=== PATIENT | female | born 1955 | race Caucasian/White ===

== ENCOUNTER 2017-02-21 11:24 | Outpatient (CLI) | payer OTHER ==
--- NOTE | 2017-02-22 18:07 | Mammography Report ---
DATE OF SERVICE: 02/21/2017 DIGITAL SCREENING MAMMOGRAM: 02/21/2017 CLINICAL INDICATION: A 61-year-old with history of benign biopsy for screening. COMPARISON: 10/2015, 07/2014, 07/2012, 08/2010, 07/2010. TECHNIQUE: Routine CC and MLO projections were obtained of the breasts. The breasts again demonstrate scattered fibroglandular densities bilaterally. The previously biopsied nodules in the left upper outer quadrant are stable, with biopsy markers in place. No suspicious masses, clustered microcalcifications, or regions of architectural distortion are identified. IMPRESSION: Benign findings. RECOMMENDATIONS: Routine annual screening unless otherwise clinically indicated. BIRADS category 2 benign findings. STANDARD QUALIFYING STATEMENTS 1. This examination was reviewed with the aid of Computed-Aided Detection (CAD). 2. A negative or benign imaging report should not delay biopsy if clinically suspicious findings are present. Consider surgical consultation if warranted. More than 5% of cancers are not identified by imaging. 3. Dense breasts may obscure an underlying neoplasm. TD: 02/22/2017 19:06
== END 2017-02-21 11:25 | disposition home or self-care (01) ==
LOC: DI 11:24
PROVIDERS: ATTEND Family Medicine
DX: Z12.31 Encounter for screening mammogram for malignant neoplasm of breast (principal)
CPT/HCPCS: 77067

== ENCOUNTER 2018-02-18 12:16 | Emergency (ER) | payer OTHER ==
[2018-02-18] MEDS ORDERED: AMOX/CLAV 875 MG/125 MG TABLET PO STA (15:58)
[2018-02-18] MEDS ORDERED: ACETAMINOPHEN 325 MG TABLET PO STA (15:58)
--- NOTE | 2018-02-18 16:01 | ED Physician Documentation ---
History of Present Illness - Stated complaint Stated Complaint: DOG BITES/LOWER BODY - Chief complaint Chief Complaint: Laceration - Additonal information Additional information: hx from pt 62 female tdap age 58 to ER after the neighbor dog bit her L thigh R buttock unprovoked - she was walking by house dogs own recently family at house know dont know immuniz [place] dog has no tags animal control not working today Review of Systems Skin: reports: Bite / sting PD PAST MEDICAL HISTORY - Past Medical History Past Medical History: No Cardiovascular: None Respiratory: None Neuro: Migraines Endocrine/Autoimmune: None GI: None DIE ATTACHING MACHINE TENDER: None : None HEENT: None Psych: None Musculoskeletal: None Derm: None - Past Surgical History Past Surgical History: No /DIE ATTACHING MACHINE TENDER: Hysterectomy - Present Medications Home Medications: Ambulatory Orders Medication Instructions Recorded Confirmed Amox/Clav 875/125 [Augmentin] 1 each PO Q12H #13 tablet 02/18/18 - Allergies Allergies/Adverse Reactions: Allergies Allergy/AdvReac Type Severity Reaction Status Date / Time No Known Drug Allergies Allergy Verified 02/18/18 12:53 - Social History Does the pt smoke?: No Smoking Status: Never smoker Does the pt drink ETOH?: Yes ETOH Use: Wine Does the pt have substance abuse?: Yes Substance Use and Type: Marijuana - Immunizations Immunizations are current?: Yes - POLST Patient has POLST: No PD ED PE NORMAL - Vitals Vital signs reviewed: Yes - Extremities Extremities: Other (two punctures to L thich and linear abrasion to buttock) Results - Vitals Vitals: Vital Signs - 24 hr 02/18/18 12:49 Temperature 36.6 C Heart Rate 94 Respiratory 18 Rate Blood Pressure 174/112 H O2 Saturation 98 Oxygen O2 Source Room air PD MEDICAL DECISION MAKING - ED course ED course: as this is a pet dog it is a) liekly immunized and b) unliekly to have been exposed to rabies kane on [place] rec dog be quarantined and tx pt with augmentin and wound care Departure - Departure Disposition: 01 Home, Self Care Clinical Impression: Dog bite Qualifiers: Encounter type: initial encounter Qualified Code(s): W54.0XXA - Bitten by dog, initial encounter Condition: Good Instructions: ED Bite Dog Follow-Up: Madelyn Mccarty MD [Primary Care Provider] - (wound check 48 hr ) Prescriptions: Amox/Clav 875/125 [Augmentin] 1 each PO Q12H #13 tablet Comments: Rabies is unlikely on [place]. Recommend the dog be quarantined and observed. But do not recommend you get the rabies series at this time Please get your blood pressure rechecked - it was high today
[2018-02-18 16:21] VITALS: BP 166/89
== END 2018-02-18 16:45 | disposition home or self-care (01) ==
LOC: ED 12:16
DX: S71.152A Open bite, left thigh, initial encounter (principal); S30.810A Abrasion of lower back and pelvis, initial encounter; W54.0XXA Bitten by dog, initial encounter; Y93.01 Activity, walking, marching and hiking
CPT/HCPCS: 99283; A9270

== ENCOUNTER 2019-01-21 11:22 | Outpatient (CLI) | payer OTHER ==
--- NOTE | 2019-01-21 14:33 | Mammography Report ---
Reason: ANNUAL SCREENING Procedure Date: 01/21/2019 Accession Number: [id number] / [id number] Procedure: AMINTA - Screening Mammo w/Tru CPT Code: Final Report FULL RESULT: EXAM: Screening Mammo w/Tru DATE: 01/21/2019 12:14 PM CLINICAL HISTORY: Routine screening TECHNIQUE: (B) - Bilateral CC and MLO views were obtained. COMPARISON: 02/21/2017, 10/13/2015, 07/28/2014, 07/29/2012, 08/05/2010, 08/01/2010 PARENCHYMAL PATTERN: (A) - The breasts demonstrate scattered fibroglandular densities bilaterally. FINDINGS: Circumscribed left upper outer quadrant nodule and 2 biopsy markers are stable. There are no new suspicious masses, calcifications, or areas of distortion. IMPRESSION: Benign findings. BI-RADS category 2. RECOMMENDATION: (ANNUAL) - Recommend routine annual screening mammography. BI-RADS CATEGORY: (2) - Benign Findings. STANDARD QUALIFYING STATEMENTS: 1. This examination was not reviewed with the aid of Computer-Aided Detection (CAD). 2. A negative or benign imaging report should not preclude biopsy if clinically suspicious findings are present. 3. Dense breasts may obscure an underlying neoplasm. 4. This examination was reviewed with the aid of 3D breast imaging (tomosynthesis).
== END 2019-01-21 11:23 | disposition home or self-care (01) ==
LOC: DI 11:22
DX: Z12.31 Encounter for screening mammogram for malignant neoplasm of breast (principal)
CPT/HCPCS: 77063; 77067

== ENCOUNTER 2020-05-27 08:01 | Outpatient (CLI) | payer OTHER ==
[2020-05-27 08:25] LABS: BASOPHILS # (AUTO) 0.1 10^3/uL (0.0-0.1); BASOPHILS % (AUTO) 1.3 %; EOSINOPHILS # (AUTO) 0.2 10^3/uL (0.0-0.7); EOSINOPHILS % (AUTO) 3.9 %; HCT - HEMATOCRIT 43.7 % (37.0-47.0); HGB - HEMOGLOBIN 14.5 g/dL (12.0-16.0); MEAN CORPUSCULAR HEMOGLOBIN 30.9 pg (27.0-31.0); MEAN CORPUSCULAR HGB CONC 33.2 g/dL (32.0-36.0); MEAN CORPUSCULAR VOLUME 93.2 fL (81.0-99.0); MEAN PLATELET VOLUME 10.1 fL (7.9-10.8); MONOCYTES # (AUTO) 0.5 10^3/uL (0.0-1.0); MONOCYTES % (AUTO) 9.2 %; NEUTROPHILS # (AUTO) 2.7 10^3/uL (1.5-6.6); NEUTROPHILS % (AUTO) 49.4 %; PLT - PLATELET COUNT 311 10^3/uL (130-450); RED BLOOD COUNT 4.69 10^6/uL (4.20-5.40); RED CELL DISTRIBUTION WIDTH 13.7 % (12.0-15.0); WHITE BLOOD COUNT 5.4 x10^3/uL (4.8-10.8)
[2020-05-27 08:37] LABS: ALBUMIN 4.4 g/dL (3.2-5.5); ALBUMIN/GLOBULIN RATIO 1.4 (1.0-2.2); ALKALINE PHOSPHATASE 59 IU/L (42-121); ALT ALANINE AMINOTRANSFERASE 23 IU/L (10-60); AST ASPARTATE AMINOTRANSFERASE 19 IU/L (10-42); BILIRUBIN,TOTAL 1.1 mg/dL (0.2-1.0); BUN - BLOOD UREA NITROGEN 17 mg/dL (6-20); CALCIUM 9.3 mg/dL (8.5-10.3); CARBON DIOXIDE - CO2 24 mmol/L (21-32); CHLORIDE 104 mmol/L (101-111); CHOL/HDL RATIO 2.7 (<4.4); CHOLESTEROL 202 mg/dL; CREATININE 0.8 mg/dL (0.4-1.0); GFR - MDRD 72 (>89); GLUCOSE 109 mg/dL (70-100); HDL CHOLESTEROL 74 mg/dL; LDL CHOLESTEROL,CALCULATED 114 mg/dL; LDL/HDL RATIO 1.5 (<4.4); SODIUM 139 mmol/L (135-145); TOTAL PROTEIN 7.6 g/dL (6.7-8.2); TRIGLYCERIDES 70 mg/dL; VLDL CHOLESTEROL 14 mg/dL
[2020-05-27 08:47] LABS: THYROID STIMULATING HORMONE 2.97 uIU/mL (0.34-5.60)
== END 2020-05-27 08:02 | disposition home or self-care (01) ==
LOC: LAB 08:01
PROVIDERS: ATTEND Family Medicine
DX: Z00.00 Encounter for general adult medical examination without abnormal findings (principal); R03.0 Elevated blood-pressure reading, without diagnosis of hypertension
CPT/HCPCS: 36415; 80053; 80061; 83721; 84443; 85025

== ENCOUNTER 2020-09-30 10:15 | Outpatient (CLI) | payer MEDICARE ==
--- NOTE | 2020-10-01 13:39 | Mammography Report ---
BILATERAL DIGITAL SCREENING MAMMOGRAM 3D/2D: 09/30/2020 CLINICAL: Routine screening. Comparison is made to exams dated: 01/21/2019 mammogram, 02/21/2017 mammogram, 10/13/2015 mammogram, mammogram, 07/29/2012 ultrasound, and 07/29/2012 mammogram - [facility]. The re are scattered fibroglandular elements in both breasts. There is a biopsy clip in the left breast. No significant masses, calcifications, or other findings are seen in either breast. There has been no significant interval change. IMPRESSION: NEGATIVE There is no mammographic evidence of malignancy. A 1 year screening mammogram is recommended. This exam was interpreted at Station ID: [id number]. NOTE: For mammograms, a report in lay terms will be sent to the patient. Approximately 15% of breast malignancies will not be visualized mammographically. In the management of a palpable breast mass, a negative mammogram must not discourage biopsy of a clinically suspicious lesion. Electronically Signed By: Ty duke/steph:09/30/2020 15:19:02 ACR BI-RADS Category 1: Negative 3341F PARENCHYMAL PATTERN: (A) - The breast(s) demonstrate(s) scattered fibroglandular densities. BI-RADS CATEGORY: (1) - 1 RECOMMENDATION: (ANNUAL) - Recommend routine annual screening mammography. [id number] 1 year screening LATERALITY: (B)
== END 2020-09-30 10:16 | disposition home or self-care (01) ==
LOC: DI 10:15
DX: Z12.31 Encounter for screening mammogram for malignant neoplasm of breast (principal)

== ENCOUNTER 2020-10-18 13:57 | Outpatient (CLI) | payer MEDICARE | END 2020-10-18 13:58 | disposition home or self-care (01) | LOC: COV 13:57 | PROVIDERS: ATTEND Family Medicine | DX: R50.9 Fever, unspecified (principal); R05 Cough; R06.02 Shortness of breath; M79.10 Myalgia, unspecified site; R53.83 Other fatigue; R07.0 Pain in throat; R09.81 Nasal congestion; J34.89 Other specified disorders of nose and nasal sinuses; R11.2 Nausea with vomiting, unspecified; Z20.822 Contact with and (suspected) exposure to COVID-19 ==

== ENCOUNTER 2021-03-29 07:09 | Day surgery (SDC) | payer MEDICARE ==
[2021-03-29] MEDS ORDERED: LACTATED RINGERS 1,000 ML IV ONE (07:49)
--- NOTE | 2021-03-29 08:15 | ANESTHESIA ---
Pre-Anesthesia VS, & Labs - Diagnosis screening exam - Procedure colonoscopy Vital Signs: Temp Pulse Resp BP Pulse Ox 36.4 C L 64 14 164/97 H 96 03/29/21 07:30 03/29/21 07:30 03/29/21 07:30 03/29/21 07:30 03/29/21 07:30 Height: 5 ft 7 in Weight (kg): 92.4 kg Body Mass Index: 31.8 BMI Classification: Obese - NPO >8 hours - Is Patient ?: No Home Medications and Allergies Home Medications: Ambulatory Orders Biotin 5 mg PO DAILY 03/29/21 Metoprolol Succinate [Kapspargo Sprinkle] 25 mg PO DAILY 03/29/21 Multivitamin 1 each PO 03/29/21 Sumatriptan Succinate [Imitrex] 100 mg PO 03/29/21 Biotin 5 mg PO DAILY 03/29/21 Metoprolol Succinate [Kapspargo Sprinkle] 25 mg PO DAILY 03/29/21 Multivitamin 1 each PO 03/29/21 Sumatriptan Succinate [Imitrex] 100 mg PO 03/29/21 Allergies/Adverse Reactions: Allergies Allergy/AdvReac Type Severity Reaction Status Date / Time No Known Drug Allergies Allergy Verified 02/18/18 12:53 Anes History & Medical History - Anesthetic History Anesthesia Complications: reports: No previous complications - Medical History Cardiovascular: reports: Hypertension Pulmonary: reports: None Gastrointestinal: reports: None Urinary: reports: None Neuro: reports: Migraines Musculoskeletal: reports: Osteoarthritis Endocrine/Autoimmune: reports: None Blood Disorders: reports: None Skin: reports: None Smoking Status: Never smoker Psychosocial: reports: Alcohol (1-2 glasses of wine per day) History of Cancer?: No - Surgical History General: reports: Colonoscopy Eyes Ears Nose Throat (EENT): reports: Other Gynecologic: reports: Hysterectomy Orthopedic: reports: Arthroscopic surgery Exam General: Alert, Oriented x3, Cooperative, No acute distress Dental: WNL Mouth Openin Fingerbreadth Neck Mobility: Reduced Mallampati classification: III Thyromental Distance: 4-6 cm Mental/Cognitive Status: Alert/Oriented X3, Normal for patient Plan Anesthesia Type: Total IV Consent for Procedure(s) Verified and Reviewed: Yes Code Status: Attempt Resuscitation ASA classification: 2-Mild systemic disease Is this case an emergency?: No
[2021-03-29] MEDS ORDERED: PROPOFOL 200 MG/20 ML VIAL IVP ONE (09:22)
[2021-03-29] MEDS ORDERED: LACTATED RINGERS 300 ML IV ONE (09:38)
[2021-03-29 10:11] VITALS: BP 162/98
--- NOTE | 2021-03-29 10:36 | ANESTHESIA POST OP EVALUATION ---
Anesthesia Post Eval - Post Anesthesia Eval Vitals: Last Vital Signs Temp 36.5 C 03/29/21 10:11 Pulse 72 03/29/21 10:11 Resp 15 03/29/21 10:11 BP 162/98 H 03/29/21 10:11 Pulse Ox 99 03/29/21 10:11 CV Function Including HR & BP: Stable Pain Control: Satisfactory Nausea & Vomiting: Negative Mental Status: Baseline Respiratory Status: Airway Patent Hydration Status: Satisfactory Anesthesia Complications: None
== END 2021-03-29 07:10 | disposition home or self-care (01) ==
LOC: SDS 07:09
PROVIDERS: ATTEND Surgery
PROC: 0DBH8ZZ Excision of Cecum, Via Natural or Artificial Opening Endoscopic (ICD-10-PCS; principal; 2021-03-29 08:15)
DX: Z12.11 Encounter for screening for malignant neoplasm of colon (principal); D12.0 Benign neoplasm of cecum; K57.30 Diverticulosis of large intestine without perforation or abscess without bleeding; K64.8 Other hemorrhoids; G43.909 Migraine, unspecified, not intractable, without status migrainosus; E66.9 Obesity, unspecified; Z68.31 Body mass index [BMI] 31.0-31.9, adult
CPT/HCPCS: 45380; J7120

== ENCOUNTER 2022-04-04 14:17 | Outpatient (CLI) | payer MEDICARE ==
--- NOTE | 2022-04-05 12:29 | Mammography Report ---
BILATERAL DIGITAL SCREENING MAMMOGRAM 3D/2D: 04/04/2022 CLINICAL: Routine screening. Comparison is made to exams dated: 09/30/2020 mammogram, 01/21/2019 mammogram, 02/21/2017 mammogram, a nd [facility] There are scattered areas of fibroglandular density in both breasts (category b / 25%-50% glandular t issue). There are biopsy clips in the left breast. No significant masses, calcifications, or other findings are seen in either breast. There has been no significant interval change. IMPRESSION: NEGATIVE There is no mammographic evidence of malignancy. A 1 year screening mammogram is recommended. Based on the Tyrer Cuzick model (a risk assessment model) the patients lifetime risk is 5.2% and her 10 year risk is 2.9%. According to the ACR, ACS, and NCCN guidelines, an annual breast MRI exam daniel g with mammogram is recommended if the patients lifetime risk is 20% or greater. This exam was interpreted at Station ID: [id number]. NOTE: For mammograms, a report in lay terms will be sent to the patient. Approximately 15% of breast malignancies will not be visualized mammographically. In the management of a palpable breast mass, a negative mammogram must not discourage biopsy of a clinically suspicious lesion. Electronically Signed By: Peter hardy/steph:04/04/2022 16:46:28 letter sent: No_Letter ACR BI-RADS Category 1: Negative 3341F PARENCHYMAL PATTERN: (A) - The breast(s) demonstrate(s) scattered fibroglandular densities. BI-RADS CATEGORY: (1) - 1 RECOMMENDATION: (ANNUAL) - Recommend routine annual screening mammography. [id number] 1 year screening LATERALITY: (B)
== END 2022-04-04 14:18 | disposition home or self-care (01) ==
LOC: DI 14:17
DX: Z12.31 Encounter for screening mammogram for malignant neoplasm of breast (principal)

== ENCOUNTER 2022-06-07 07:00 | Outpatient (CLI) | payer MEDICARE ==
--- NOTE | 2022-06-07 17:13 | XRAY Report ---
PROCEDURE: Hip w/Pelvis 2-3V LT INDICATIONS: LEFT HIP PAIN. TECHNIQUE: AP pelvis with lateral view(s) of the left hip(s). COMPARISON: None. FINDINGS: Bones: No fractures or dislocations. No suspicious bony lesions. Yomn-ml-xllxuyya symmetric hip a nd sacroiliac joint degeneration bilaterally. Soft tissues: No suspicious soft tissue calcifications or masses. IMPRESSION: Zaoy-ay-udtijnhp degenerative joint disease. Reviewed by: Kalpana Fajardo MD on 06/07/2022 5:11 PM PDT Approved by: Kalpana Fajardo MD on 06/07/2022 5:11 PM PDT Station ID: [id number]
== END 2022-06-07 23:59 | disposition home or self-care (01) ==
LOC: DI.S 07:00
PROVIDERS: ATTEND Internal Medicine
DX: M16.12 Unilateral primary osteoarthritis, left hip (principal)

== ENCOUNTER 2022-09-21 07:42 | Outpatient (CLI) | payer MEDICARE ==
[2022-09-21 08:02] LABS: BASOPHILS # (AUTO) 0.1 10^3/uL (0.0-0.1); EOSINOPHILS # (AUTO) 0.4 10^3/uL (0.0-0.7); EOSINOPHILS % (AUTO) 6.2 %; HGB - HEMOGLOBIN 13.7 g/dL (12.0-16.0); LYMPHOCYTES # (AUTO) 1.8 10^3/uL (1.5-3.5); LYMPHOCYTES % (AUTO) 30.1 %; MEAN CORPUSCULAR HGB CONC 32.6 g/dL (32.0-36.0); MEAN CORPUSCULAR VOLUME 91.9 fL (81.0-99.0); MEAN PLATELET VOLUME 9.5 fL (7.9-10.8); MONOCYTES # (AUTO) 0.6 10^3/uL (0.0-1.0); MONOCYTES % (AUTO) 9.6 %; NEUTROPHILS # (AUTO) 3.2 10^3/uL (1.5-6.6); NEUTROPHILS % (AUTO) 52.8 %; PLT - PLATELET COUNT 287 10^3/uL (130-450); RED BLOOD COUNT 4.57 10^6/uL (4.20-5.40); RED CELL DISTRIBUTION WIDTH 13.6 % (12.0-15.0); WHITE BLOOD COUNT 6.1 x10^3/uL (4.8-10.8)
[2022-09-21 08:28] LABS: ALBUMIN 4.1 g/dL (3.2-5.5); ALBUMIN/GLOBULIN RATIO 1.4 (1.0-2.2); ALKALINE PHOSPHATASE 62 IU/L (42-121); ALT ALANINE AMINOTRANSFERASE 23 IU/L (10-60); AST ASPARTATE AMINOTRANSFERASE 19 IU/L (10-42); BUN - BLOOD UREA NITROGEN 18 mg/dL (6-20); CALCIUM 9.2 mg/dL (8.5-10.3); CARBON DIOXIDE - CO2 28 mmol/L (21-32); CHLORIDE 105 mmol/L (101-111); CHOL/HDL RATIO 3.4 (<4.4); CHOLESTEROL 195 mg/dL; CREATININE 0.7 mg/dL (0.4-1.0); GFR - MDRD 83 (>89); GLUCOSE 114 mg/dL (70-100); HDL CHOLESTEROL 57 mg/dL; LDL CHOLESTEROL,CALCULATED 112 mg/dL; POTASSIUM 3.9 mmol/L (3.5-5.0); SODIUM 139 mmol/L (135-145); TOTAL PROTEIN 7.1 g/dL (6.7-8.2); TRIGLYCERIDES 131 mg/dL; VLDL CHOLESTEROL 26 mg/dL
[2022-09-21 08:36] LABS: THYROID STIMULATING HORMONE 4.08 uIU/mL (0.34-5.60)
== END 2022-09-21 07:43 | disposition home or self-care (01) ==
LOC: LAB 07:42
PROVIDERS: ATTEND Nurse Practitioner Acute Care
DX: Z13.228 Encounter for screening for other metabolic disorders (principal); Z13.220 Encounter for screening for lipoid disorders; Z13.29 Encounter for screening for other suspected endocrine disorder; Z13.0 Encounter for screening for diseases of the blood and blood-forming organs and certain disorders involving the immune mechanism
CPT/HCPCS: 36415; 80053; 80061; 83721; 84443; 85025

== ENCOUNTER 2023-06-09 19:35 | Emergency (ER) | payer MEDICARE ==
[2023-06-09 19:50] VITALS: BP 160/90
--- NOTE | 2023-06-09 20:20 | ED Physician Documentation ---
History of Present Illness - Stated complaint Stated Complaint: SORE THROAT/EAR PX - Chief complaint Chief Complaint: General - History obtained from History obtained from: Patient - Additonal information Additional information: 67-year-old female presents for sore throat, nonproductive cough, right ear pain. Symptoms have been ongoing for 2 weeks. She presents with her who is here with similar symptoms. Patient and her both state that they do not feel that fzkv-pgw-ahyrkcf medications are working and are concerned that there may be another infection going on. They are also requesting different cough medications if possible. Review of Systems Constitutional: denies: Fever, Chills Throat: reports: Sore throat Cardiac: denies: Chest pain / pressure, Palpitations, Calf pain Respiratory: reports: Cough. denies: Dyspnea, Wheezing Skin: denies: Rash, Lesions, Abrasion (s) PD PAST MEDICAL HISTORY - Past Medical History Past Medical History: Yes Cardiovascular: Hypertension Respiratory: None Neuro: Migraines Endocrine/Autoimmune: None GI: None CALL SPECIALIST: None : None HEENT: None Psych: None Musculoskeletal: Osteoarthritis Derm: None - Past Surgical History Past Surgical History: No General: Colonoscopy Ortho: Arthroscopic surgery /CALL SPECIALIST: Hysterectomy HEENT: Other - Present Medications Home Medications: Ambulatory Orders Medication Instructions Recorded Confirmed Biotin 5 mg PO DAILY 03/29/21 03/29/21 Metoprolol Succinate [Kapspargo 25 mg PO DAILY 03/29/21 03/29/21 Sprinkle] Multivitamin 1 each PO 03/29/21 Sumatriptan Succinate [Imitrex] 100 mg PO 03/29/21 Hydrocodone Bit/Homatrop Me-Br 5 ml PO Q6H PRN #150 ml 06/09/23 [Hycodan 5 mg-1.5 mg/5 ml Soln] - Allergies Allergies/Adverse Reactions: Allergies Allergy/AdvReac Type Severity Reaction Status Date / Time No Known Drug Allergies Allergy Verified 06/09/23 19:41 - Social History Does the pt smoke?: No Smoking Status: Never smoker Does the pt drink ETOH?: Yes Does the pt have substance abuse?: Yes - Immunizations Immunizations are current?: Yes - POLST Patient has POLST: No PD ED PE NORMAL - Vitals Vital signs reviewed: Yes - General General: Alert and oriented X 3, No acute distress, Well developed/nourished - HEENT HEENT: Atraumatic, PERRL, EOMI, Ears normal, Moist mucous membranes, Pharynx benign, Dentition benign - Neck Neck: Supple, no meningeal sign - Cardiac Cardiac: RRR, Strong equal pulses - Respiratory Respiratory: No respiratory distress, Clear bilaterally - Derm Derm: Normal color, Warm and dry, No rash - Extremities Extremities: No deformity, No tenderness to palpate, Normal ROM s pain, No edema - Neuro Neuro: Alert and oriented X 3, senior dynamics crm developer 2-12 intact, No motor deficit, Normal speech Results - Vitals Vitals: Vital Signs - 24 hr 06/09/23 06/09/23 19:41 20:52 Temperature 37.3 C Heart Rate 79 78 Respiratory 16 16 Rate Blood Pressure 160/90 H O2 Saturation 96 97 Oxygen O2 Source Room air - Labs Labs: Laboratory Tests 06/09/23 20:20 Nasal Influenza B PCR NOT DETECTED Nasal Influenza A PCR NOT DETECTED Nasal RSV (PCR) NOT DETECTED Nasal SARS-CoV-2 (PCR) NOT DETECTED PD Medical Decision Making - ED course Complexity details: reviewed old records, reviewed results, re-evaluated patient, considered differential, d/w patient ED course: Well-appearing patient with persistent upper respiratory symptoms consistent with acute bronchitis. Reports sore throat and ear pain, however exam of pharynx and tympanic membranes is normal. Lungs are clear to auscultation. Patient states her primary concern is the cough that is not controlled with uags-gki-zqtouwz medications. Given dose of Decadron, cough medication sent to pharmacy of choice. Departure - Departure Disposition: 01 Home, Self Care Clinical Impression: Bronchitis Condition: Stable Instructions: ED Upper Resp Infec No Abx Tx Prescriptions: Hydrocodone Bit/Homatrop Me-Br [Hycodan 5 mg-1.5 mg/5 ml Soln] 5 ml PO Q6H PRN #150 ml PRN Reason: Cough Forms: PCP List Discharge Date/Time: 06/09/23 20:53
[2023-06-09] MEDS: CHERRY SYRUP 10 ML UDC PO ONE (20:24)
[2023-06-09] MEDS: DEXAMETHASONE 10 MG/ML VIAL PO STA (20:24)
[2023-06-09 20:56] VITALS: O2SAT 97
[2023-06-09 21:15] LABS: INFLUENZA A- RESP PCR PANEL NOT DETECTED; INFLUENZA B - RESP PCR PANEL NOT DETECTED; RSV- RESP PCR PANEL NOT DETECTED; SARS-CoV-2 -RESP PCR PANEL NOT DETECTED
== END 2023-06-09 20:53 | disposition home or self-care (01) ==
LOC: ED 19:35
DX: J40 Bronchitis, not specified as acute or chronic (principal)
CPT/HCPCS: 87637; 99283; A9270

== ENCOUNTER 2023-10-17 08:05 | Outpatient (CLI) | payer MEDICARE ==
[2023-10-17 08:23] LABS: BILIRUBIN,URINE NEGATIVE (NEGATIVE); GLUCOSE, URINE (UA) NEGATIVE (NEGATIVE); KETONES,URINE (UA) NEGATIVE (NEGATIVE); LEUKOCYTE ESTERASE, URINE NEGATIVE (NEGATIVE); NITRITE,URINE NEGATIVE (NEGATIVE); OCCULT BLOOD,URINE NEGATIVE (NEGATIVE); PROTEIN,URINE NEGATIVE (NEGATIVE); UROBILINOGEN,URINE 0.2 (NORMAL) E.U./dL (NORMAL)
[2023-10-17 08:47] LABS: BACTERIA,URINE Rare /HPF (None Seen); CLARITY,URINE CLEAR (CLEAR); RBC,URINE 0-5 /HPF (0-5); SQUAMOUS EPITHELIAL CELL,UR RARE Squamous (<= Few); WBC,URINE 0-3 /HPF (0-5)
[2023-10-18 05:15] LABS: HIV SCREEN 4TH GENERATION Non Reactive (Non Reactive)
== END 2023-10-17 08:06 | disposition home or self-care (01) ==
LOC: LAB 08:05
PROVIDERS: ATTEND Nurse Practitioner Acute Care
DX: R61 Generalized hyperhidrosis (principal)
CPT/HCPCS: 36415; 81001; 85651; 86038; 86140; 87040; G0475; 87086; 87389

== ENCOUNTER 2023-10-18 08:49 | Outpatient (CLI) | payer MEDICARE ==
--- NOTE | 2023-10-19 10:45 | Mammography Report ---
BILATERAL DIGITAL SCREENING MAMMOGRAM 3D/2D: 10/18/2023 CLINICAL: Routine screening. Comparison is made to exams dated: 04/04/2022 mammogram, 09/30/2020 mammogram, 01/21/2019 mammogram, mammogram, 10/13/2015 mammogram, and 07/28/2014 mammogram - [facility]. There are scattered areas of fibroglandular density (category b / 25%-50% glandular tissue). There are biopsy clips in the left breast. No significant masses, calcifications, or other findings are seen in either breast. There has been no significant interval change. IMPRESSION: NEGATIVE There is no mammographic evidence of malignancy. A 1 year screening mammogram is recommended. Based on the Tyrer Cuzick model (a risk assessment model) the patient's lifetime risk is 4.7% and her 10 year risk is 2.9%. According to the ACR, ACS, and NCCN guidelines, an annual breast MRI exam daniel g with mammogram is recommended if the patient's lifetime risk is 20% or greater. This exam was interpreted at Station ID: [id number]. NOTE: For mammograms, a report in lay terms will be sent to the patient. Approximately 15% of breast malignancies will not be visualized mammographically. In the management of a palpable breast mass, a negative mammogram must not discourage biopsy of a clinically suspicious lesion. Electronically Signed By: Ty Gross M.D. [email or web address]:10/18/2023 17:34:31 ACR BI-RADS Category 1: Negative 3341F PARENCHYMAL PATTERN: (A) - The breast(s) demonstrate(s) scattered fibroglandular densities. BI-RADS CATEGORY: (1) - 1 RECOMMENDATION: (ANNUAL) - Recommend routine annual screening mammography. [id number] 1 year screening LATERALITY: (B)
== END 2023-10-18 08:50 | disposition home or self-care (01) ==
LOC: DI 08:49
PROVIDERS: ATTEND Nurse Practitioner Acute Care
DX: Z12.31 Encounter for screening mammogram for malignant neoplasm of breast (principal)